=== PATIENT | female | born 1985 | race Caucasian/White ===

== ENCOUNTER 2024-12-20 11:31 | Day surgery (SDC) | payer OTHER ==
[2024-12-20] MEDS: FERRIC CARBOXYMALTOSE 750 MG in SODIUM CHLORIDE 250 ML IVPB ONE (11:22)
[2024-12-20 12:12] VITALS: RESP 18; TEMP 98.5
[2024-12-20 12:41] VITALS: BP 103/55; PULSE 78
== END 2024-12-20 12:35 | disposition home or self-care (01) ==
LOC: JONCNONCHE 11:31
PROVIDERS: ATTEND Internal Medicine Hematology & Oncology
PROC: 3E033GC Introduction of Other Therapeutic Substance into Peripheral Vein, Percutaneous Approach (ICD-10-PCS; principal; 2024-12-20)
DX: D50.9 Iron deficiency anemia, unspecified (principal)
CPT/HCPCS: 96365; J1439

== ENCOUNTER 2024-12-27 13:00 | Day surgery (SDC) | payer OTHER ==
[2024-12-27] MEDS: FERRIC CARBOXYMALTOSE 750 MG in SODIUM CHLORIDE 250 ML IVPB ONE (13:16)
[2024-12-27 15:35] VITALS: RESP 18; TEMP 97.4
[2024-12-27 15:44] VITALS: BP 104/62; PULSE 86
== END 2024-12-27 14:35 | disposition home or self-care (01) ==
LOC: JONCNONCHE 13:00
PROVIDERS: ATTEND Internal Medicine Hematology & Oncology
PROC: 3E033GC Introduction of Other Therapeutic Substance into Peripheral Vein, Percutaneous Approach (ICD-10-PCS; principal; 2024-12-27)
DX: D50.9 Iron deficiency anemia, unspecified (principal)
CPT/HCPCS: 96365; J1439